=== PATIENT | female | born 1955 | race Caucasian/White ===

== ENCOUNTER → 2019-02-19 | Outpatient (CLI) | payer OTHER ==
[~2019-02-19] MED LIST: ALBU90OI INH; ASPI81CH PO; ATOR10 PO; AZIT250 PO; DIAZ10 PO; DIAZ5; DIAZ5 PO; LEVSOD50 PO; LEVSOD75 PO; LOSARTAN POTAS100 MG PO; MEDICAL MARIJUANA; NITR.4SL SL; PERI4 PO; Prednisone20 MG PO; QUIN325; SULTRIDS PO
== END | disposition home or self-care (01) ==
LOC: LAB SHORT 08:08 → PLD 08:08
DX: D23.61 Other benign neoplasm of skin of right upper limb, including shoulder (principal)
CPT/HCPCS: 88305

== ENCOUNTER → 2020-06-20 | Outpatient (CLI) | payer MEDICARE, OTHER ==
[~2020-06-20] MED LIST changes: +CLOP75 PO; +EZET10 PO
== END | disposition home or self-care (01) ==
LOC: LAB 19:08 → LAB SHORT 19:08
DX: R30.9 Painful micturition, unspecified (principal)
CPT/HCPCS: 87086; 87106

== ENCOUNTER → 2020-07-01 | Outpatient (CLI) | payer MEDICARE, OTHER ==
[2020-07-01 20:00] LABS: BASOPHILS ABSOLUTE AUTO 0.06 K/mm3 (0.00-0.23); BASOPHILS PERCENT AUTO 1 % (0-2); EOSINOPHILS ABSOLUTE AUTO 0.13 K/mm3 (0.00-0.68); EOSINOPHILS PERCENT AUTO 1 % (0-6); Hematocrit 42.8 % (33.0-51.0); Hemoglobin 14.2 g/dL (11.5-16.0); IMMATURE GRAN ABSOLUTE AUTO 0.03 K/mm3 (0.00-0.10); IMMATURE GRAN PERCENT AUTO 0 % (0-1); LYMPHOCYTES ABSOLUTE AUTO 1.58 K/mm3 (0.84-5.20); LYMPHOCYTES PERCENT AUTO 17 % (21-46); MONOCYTES ABSOLUTE AUTO 0.63 K/mm3 (0.16-1.47); MONOCYTES PERCENT AUTO 7 % (4-13); Mean Corpuscular HGB 29.6 pg (26.0-34.0); Mean Corpuscular HGB Conc 33.2 g/dL (31.5-36.5); Mean Corpuscular Volume 89 fL (80-100); Mean Platelet Volume 9.8 fL (9.1-12.4); NEUTROPHILS ABSOLUTE AUTO 7.05 K/mm3 (1.96-9.15); NEUTROPHILS PERCENT AUTO 74 % (41-73); Platelet Count 278 K/mm3 (150-400); RDW Coefficient Variation 12.8 % (11.7-14.2); Red Blood Cell Count 4.79 M/mm3 (3.80-5.20); White Blood Cell Count 9.48 K/mm3 (4.00-11.30)
[2020-07-01 21:42] LABS: Calcium, Blood 9.1 mg/dL (8.5-10.1); Creatinine, Blood 1.17 mg/dL (0.40-1.00); Potassium, Blood 4.8 mmol/L (3.5-5.5)
== END | disposition home or self-care (01) ==
LOC: LAB SHORT 17:49 → LAB 17:49
PROVIDERS: Nurse Practitioner Family
DX: I10 Essential (primary) hypertension (principal); N39.0 Urinary tract infection, site not specified; R30.9 Painful micturition, unspecified
CPT/HCPCS: 80048; 85025; 87070; 87086; 87205

== ENCOUNTER 2021-02-14 10:54 | Emergency (ER) | payer MEDICARE, OTHER ==
[~2021-02-14] VITALS: Ht 162.6 cm; Wt 65.8 kg
[2021-02-14 11:52] LABS: BASOPHILS ABSOLUTE AUTO 0.07 K/mm3 (0.00-0.23); BASOPHILS PERCENT AUTO 1 % (0-2); EOSINOPHILS ABSOLUTE AUTO 0.27 K/mm3 (0.00-0.68); EOSINOPHILS PERCENT AUTO 3 % (0-6); Hematocrit 38.4 % (33.0-51.0); Hemoglobin 12.3 g/dL (11.5-16.0); IMMATURE GRAN ABSOLUTE AUTO 0.02 K/mm3 (0.00-0.10); IMMATURE GRAN PERCENT AUTO 0 % (0-1); LYMPHOCYTES ABSOLUTE AUTO 1.97 K/mm3 (0.84-5.20); LYMPHOCYTES PERCENT AUTO 23 % (21-46); MONOCYTES ABSOLUTE AUTO 0.62 K/mm3 (0.16-1.47); MONOCYTES PERCENT AUTO 7 % (4-13); Mean Corpuscular HGB 30.1 pg (26.0-34.0); Mean Corpuscular Volume 94 fL (80-100); Mean Platelet Volume 9.8 fL (9.1-12.4); NEUTROPHILS ABSOLUTE AUTO 5.73 K/mm3 (1.96-9.15); NEUTROPHILS PERCENT AUTO 66 % (41-73); Platelet Count 238 K/mm3 (150-400); RDW Coefficient Variation 13.1 % (11.7-14.2); RDW Standard Deviation 44.5 fL (35.1-46.3); Red Blood Cell Count 4.08 M/mm3 (3.80-5.20); White Blood Cell Count 8.68 K/mm3 (4.00-11.30)
[2021-02-14 11:54] LABS: Source, Urine Catheter
[2021-02-14 12:05] LABS: Bilirubin, Urine Neg (Neg); Blood, Urine Neg (Neg); Glucose Qualitative, Urine Neg (Neg); Ketones, Urine Neg (Neg); Leukocyte Esterase, Urine Neg (Neg); Nitrite, Urine Neg (Neg); Protein, Urine Neg (Neg); Specific Gravity, Urine 1.015 (1.003-1.022); Urobilinogen, Urine NORM (Normal)
[2021-02-14 12:10] LABS: Albumin, Blood 3.8 g/dL (3.4-5.0); Albumin/Globulin Ratio 1.1 (0.8-1.8); Bilirubin, Total 0.4 mg/dL (0.1-1.0); Bun/Creatinine Ratio 18.7 (12.0-20.0); Creatinine, Blood 2.83 mg/dL (0.40-1.00); Globulin, Blood 3.6 g/dL (2.2-4.0); Total Protein, Blood 7.4 g/dL (6.4-8.2)
[2021-02-14 12:11] LABS: Appearance, Urine Clear (Clear); Color, Urine Yellow (P-Yellow)
== END 2021-02-14 13:05 | disposition home or self-care (01) ==
LOC: ER 10:54
PROVIDERS: Emergency Medicine
DX: N28.9 Disorder of kidney and ureter, unspecified (principal); F17.200 Nicotine dependence, unspecified, uncomplicated; Z79.899 Other long term (current) drug therapy
CPT/HCPCS: 36415; 76770; 80053; 81003; 85025; 99284-25; J7120; P9612

== ENCOUNTER → 2021-12-02 | Outpatient (CLI) | payer MEDICARE, OTHER ==
[2021-12-02 17:23] LABS: Source, Urine Clean Catch
[2021-12-02 17:49] LABS: Bilirubin, Urine Neg (Neg); Blood, Urine Neg (Neg); Glucose Qualitative, Urine Neg (Neg); Ketones, Urine Neg (Neg); Leukocyte Esterase, Urine 1+ (Neg); Nitrite, Urine Neg (Neg); Protein, Urine 1+ (Neg); Urobilinogen, Urine NORM (Normal)
[2021-12-02 18:11] LABS: Appearance, Urine Hazy (Clear); Color, Urine Pale Yellow (P-Yellow)
[2021-12-02 18:12] LABS: Red Blood Cells, Urine 0-2 /hpf (0-2)
[2021-12-02 18:13] LABS: Bacteria Rare /hpf; Mucus Light (0-Heavy); Squamous Epithelial Cells Rare /hpf (Few)
== END | disposition home or self-care (01) ==
LOC: LAB 16:45 → LAB SHORT 16:45
PROVIDERS: Internal Medicine Nephrology
DX: R39.9 Unspecified symptoms and signs involving the genitourinary system (principal)
CPT/HCPCS: 81001; 87086

== ENCOUNTER 2022-10-18 16:46 | Inpatient (IN) | payer MEDICARE, OTHER ==
[~2022-10-18] VITALS: Ht 152.4 cm; Wt 54.5 kg
[2022-10-18 17:27] LABS: BASOPHILS ABSOLUTE AUTO 0.07 K/mm3 (0.00-0.23); BASOPHILS PERCENT AUTO 1 % (0-2); EOSINOPHILS ABSOLUTE AUTO 0.23 K/mm3 (0.00-0.68); EOSINOPHILS PERCENT AUTO 2 % (0-6); Hematocrit 20.3 % (33.0-51.0); Hemoglobin 6.9 g/dL (11.5-16.0); IMMATURE GRAN ABSOLUTE AUTO 0.05 K/mm3 (0.00-0.10); IMMATURE GRAN PERCENT AUTO 1 % (0-1); LYMPHOCYTES ABSOLUTE AUTO 2.19 K/mm3 (0.84-5.20); LYMPHOCYTES PERCENT AUTO 21 % (21-46); MONOCYTES ABSOLUTE AUTO 0.57 K/mm3 (0.16-1.47); MONOCYTES PERCENT AUTO 6 % (4-13); Mean Corpuscular HGB 29.1 pg (26.0-34.0); Mean Corpuscular Volume 86 fL (80-100); Mean Platelet Volume 9.6 fL (9.1-12.4); NEUTROPHILS ABSOLUTE AUTO 7.15 K/mm3 (1.96-9.15); NEUTROPHILS PERCENT AUTO 70 % (41-73); Platelet Count 396 K/mm3 (150-400); RDW Coefficient Variation 13.8 % (11.7-14.2); RDW Standard Deviation 43.1 fL (35.1-46.3); Red Blood Cell Count 2.37 M/mm3 (3.80-5.20); White Blood Cell Count 10.26 K/mm3 (4.00-11.30)
[2022-10-18 18:09] LABS: Albumin, Blood 3.7 g/dL (3.4-5.0); Albumin/Globulin Ratio 1.2 (0.8-1.8); Bilirubin, Total 0.3 mg/dL (0.1-1.0); Calcium, Blood 9.2 mg/dL (8.5-10.1); Creatinine, Blood 2.82 mg/dL (0.40-1.00); Globulin, Blood 3.1 g/dL (2.2-4.0); Potassium, Blood 4.4 mmol/L (3.5-5.5); Total Protein, Blood 6.8 g/dL (6.4-8.2)
[2022-10-18 19:15] LABS: Source, Urine Clean Catch
[2022-10-18 19:22] LABS: Appearance, Urine Clear (Clear); Bilirubin, Urine Neg (Neg); Blood, Urine Neg (Neg); Glucose Qualitative, Urine 2+ (Neg); Ketones, Urine Neg (Neg); Leukocyte Esterase, Urine Neg (Neg); Nitrite, Urine Neg (Neg); Protein, Urine 3+ (Neg); Urobilinogen, Urine NORM (Normal)
[2022-10-18 19:39] LABS: Color, Urine Pale Yellow (P-Yellow)
[2022-10-18 19:40] LABS: Bacteria Few /hpf; Red Blood Cells, Urine 0-2 /hpf (0-2); Squamous Epithelial Cells Few /hpf (Few)
[2022-10-18] MEDS ORDERED: EUTHYROX50 MCG PO (20:15)
[2022-10-18] MEDS ORDERED: Amlodipine Bes2.5 MG PO (20:16)
[2022-10-18] MEDS ORDERED: CALC.25 PO (20:17)
[2022-10-18] MEDS ORDERED: TRAZ50 PO (20:18)
[2022-10-18 21:19] LABS: Influenza A, PCR NEGATIVE (NEGATIVE); Influenza B, PCR NEGATIVE (NEGATIVE); Resp Syncytial Virus, PCR NEGATIVE (NEGATIVE); SARS-Cov-2 (COVID-19) PCR, MMC NEGATIVE (NEGATIVE)
--- NOTE | 2022-10-18 23:41 | NUR ---
ADMISSION NOTE/SHIFT SUMMARY PT ARRIVED TO MEDICAL FLOOR FROM ED AT APPROX 2120. PT IS AxOx3-4 WITH INTERM FORGETFULNESS. PT'S DEREJE/JOSE M VALENTIN AT BEDSIDE TO ASSIST WITH ADMISSION. 1 UNIT RBC TRANSFUSION STARTED SHORTLY AFTER ARRIVAL TO FLOOR. PT'S LS ARE WHEEZY/RHONCHI T/O. PT WAS PLACED ON 3L O2 VIA NC. SATS >95% AFTER O2 THERAPY STARTED. GI CONSULTED THIS EVENING. CURRENT PLAN IS TO WAIT FOR LUNGS TO CLEAR BEFORE ABLE TO DO UPPER ENDOSCOPY. WITH THIS INFORMATION, PT'S DIET ADVANCED TO REGULAR/ADA PER DR WILLETT. PT IS MOANING ON AND OFF IN DISCOMFORT. DENIES ABILILTY TO TAKE ANY PAIN MEDICATION D/T GENERAL ALLERGY TO PAIN MEDS. PT GIVEN HEAT PAD WITH REPORTED RELIEF. TELE PLACED. PT IS CURRENTLY RESTING IN BED. CALL LIGHT IN REACH.
[2022-10-19 04:57] LABS: Hematocrit 26.3 % (33.0-51.0); Mean Corpuscular HGB 29.1 pg (26.0-34.0); Mean Corpuscular HGB Conc 34.2 g/dL (31.5-36.5); Mean Corpuscular Volume 85 fL (80-100); Mean Platelet Volume 9.5 fL (9.1-12.4); Platelet Count 395 K/mm3 (150-400); RDW Coefficient Variation 13.6 % (11.7-14.2); RDW Standard Deviation 42.2 fL (35.1-46.3); Red Blood Cell Count 3.09 M/mm3 (3.80-5.20); White Blood Cell Count 16.96 K/mm3 (4.00-11.30)
--- NOTE | 2022-10-19 05:25 | NUR ---
SHIFT SUMMARY PATIENT ADMITTED FROM THE ER AT 2230. PATIENT DENIES PAIN AND NAUSEA. REPORTS SHORTNESS OF BREATH. PATIENT ON 3L VIA N/C, SATURATING ABOVE 94%. PATIENT RECEIVED BREATHING TREATMENT BY RT. PATIENT MEDICATED X1 FOR ANXIETY. PATIENT HAS LEFT ARM FISTULA. PATIENT RECEIVED 1UNIT OF PRBC FOR A HGB OF 6.9. BLOOD COMPLETED AT 0215. MORNING LABS SHOWED HGB OF 9.0. PATIENT IS BEDREST. DR. WILLETT CONSULTED, SEE NOTE. AFTER BLOOD ADMINISTERED, PATIENT LUNG SOUNDS VERY MOIST AND CRACKLES. DR. GARCIA NOTIFIED, NEW ORDERS FOR FLUIDS DC'D. PATIENT UNABLE TO VOID, BLADDER SCAN SHOWED 650MLS. DR. GARCIA NOTIFIED, STRAIGHT CATH ORDERS, COMPLETED WITH OUTPUT OF 700MLS. PER DR. GARCIA, OKAY TO PLACE DIETRICH IF PATIENT RETAINS AGAIN. PATIENT SBP 180, DR. GARCIA NOTIFIED, NEW ORDERS TO GIVE 0900 DOSE OF AMLODIPINE NOW. PATIENT SLEPT ON AND OFF AFTER BLOOD COMPLETED. PATIENT PLEASANT AND COOPERATIVE WITH CARE.
[2022-10-19 05:26] LABS: Bun/Creatinine Ratio 14.8 (12.0-20.0); Calcium, Blood 8.2 mg/dL (8.5-10.1); Creatinine, Blood 2.57 mg/dL (0.40-1.00); Potassium, Blood 4.6 mmol/L (3.5-5.5)
[2022-10-19 16:30] LABS: Hematocrit 23.2 % (33.0-51.0)
--- NOTE | 2022-10-19 17:36 | NUR ---
SHIFT SUMMARY A&Ox4, COOPERATIVE WITH CARE, ANXIOUS AT TIMES. PT WAS LETHARGIC DURING THE FIRST HALF OF THE SHIFT DUE TO "BEING EXHAUSTED" AND TREATED WITH VALIUM FOR ANXIOUS EPISODE THIS AM. HER RR WAS 32 AND DECREASED WITH MEDICATION AND REST. LUNG SOUNDS IMPROVED T/O SHIFT. CRACKLES IN UPPER LOBES AND DIMINISHED IN LOWER. PRODUCTIVE COUGH NOTED. CURRENTLY ON 3L VIA NC. SBP RUNS HIGH IN THE 160'S TO 180'S. TELE HAS BEEN UPPER 80'S AND LOW 90'S WITH NO EVENTS T/0 SHIFT. PT ABLE TO PEE AND HAS HAD ADEQUATE OUTPUT. POWERGLIDE PLACED IN UPPER RIGHT ARM DUE TO IV LEAKING AND CAUSING PAIN. PT CURRENTLY ON 75MLS/HR OF NS. PLANS TO HAVE EGD DONE TOMORROW IF LUNG SOUNDS CLEAR UP. PT REPORTS SOB WITH EXERTION, DENIES CP OR DIZZINESS. COMPLAINED OF HEADACHE AND TREATED WITH TYLENOL. PT WISHES TO GET VALIUM WITH HER PM MEDS TO HELP HER SLEEP SHE HAS "BARELY SLEPT FOR 2 WEEKS." NO ACUTE EVENTS DURING THIS SHIFT. CURRENTLY EATING DINNER AND WATCHING TV WITH CALL LIGHT IN REACH.
--- NOTE | 2022-10-20 07:34 | NUR ---
INPATIENT NURSING AIDE SUMMARY PT A/OX4 W/SOME FORGETFULNESS/SLOW RECALL. NO ACUTE EVENTS. ABLE TO MAKE NEEDS KNOWN. CALLS APPROPRIATELY. SBA T/BSC. [place]. BED LOCKED/LOW. CALL LIGHT ACCESSIBLE. DR WILLETT IN TO SEE PT; PT REPORTS INFORMED HER--EGD WILL BE Tuesday10/21/22 AFTER 3PM.
[2022-10-20 07:52] LABS: BASOPHILS ABSOLUTE AUTO 0.01 K/mm3 (0.00-0.23); BASOPHILS PERCENT AUTO 0 % (0-2); EOSINOPHILS PERCENT AUTO 0 % (0-6); Hematocrit 21.7 % (33.0-51.0); Hemoglobin 7.2 g/dL (11.5-16.0); IMMATURE GRAN ABSOLUTE AUTO 0.02 K/mm3 (0.00-0.10); IMMATURE GRAN PERCENT AUTO 0 % (0-1); LYMPHOCYTES ABSOLUTE AUTO 0.37 K/mm3 (0.84-5.20); LYMPHOCYTES PERCENT AUTO 4 % (21-46); MONOCYTES ABSOLUTE AUTO 0.06 K/mm3 (0.16-1.47); MONOCYTES PERCENT AUTO 1 % (4-13); Mean Corpuscular HGB 28.1 pg (26.0-34.0); Mean Corpuscular HGB Conc 33.2 g/dL (31.5-36.5); Mean Corpuscular Volume 85 fL (80-100); Mean Platelet Volume 9.9 fL (9.1-12.4); NEUTROPHILS ABSOLUTE AUTO 8.19 K/mm3 (1.96-9.15); NEUTROPHILS PERCENT AUTO 95 % (41-73); Platelet Count 312 K/mm3 (150-400); RDW Coefficient Variation 14.2 % (11.7-14.2); RDW Standard Deviation 44.4 fL (35.1-46.3); Red Blood Cell Count 2.56 M/mm3 (3.80-5.20); White Blood Cell Count 8.65 K/mm3 (4.00-11.30)
[2022-10-20 08:17] LABS: Albumin, Blood 2.7 g/dL (3.4-5.0); Albumin/Globulin Ratio 0.9 (0.8-1.8); Bilirubin, Total 0.5 mg/dL (0.1-1.0); Bun/Creatinine Ratio 15.3 (12.0-20.0); Creatinine, Blood 2.94 mg/dL (0.40-1.00); Potassium, Blood 5.4 mmol/L (3.5-5.5); Total Protein, Blood 5.7 g/dL (6.4-8.2)
--- NOTE | 2022-10-20 12:24 | NUR ---
Echocardiogram completed.
--- NOTE | 2022-10-20 13:30 | NUR ---
PT REPORTED NO FEELING WELL THIS MORNING WHILE. DR. THOMPSON WAS MAKING ROUNDS. PT REPORTED THAT SHE WAS HAVING ONE OF HER "EPISODES" REPORTING JAW PAIN, CHEST PAIN, NAUSEOUS. PROVIDED NAUSEA MEDICATION. HR, BP, AND RR WERE ELEVATED. EKG PREFORMED. BLOOD ADMINISTERED. C/P PERSISTED, ASPRIN ADMINISTERED, CARDIOLOGY WAS CONSULTED. ECHO WAS PREFORMED AT BEDSIDE. DR. MALDONADO SAW PT, METROPROLOL WAS ADMINISTERED. PT WAS TRANSFERED TO PCU.
[2022-10-20 14:40] LABS: Hematocrit 30.2 % (33.0-51.0); Hemoglobin 10.1 g/dL (11.5-16.0)
--- NOTE | 2022-10-20 16:07 | NUR ---
PT ARRIVED TO ROOM [id number] FROM MEDICAL FLOOR. PT IS A&OX4 AND IN RESPIRATORY DISTRESS, RESP RATE 22, SP02 94% ON 6L, PT REPORTS SOB, CHEST PAIN, SHOULDER PAIN, JAW PAIN. BREATH SOUNDS COARSE, CRACKLES AND WHEEZES NOTED. PT ONLY ABLE TO SPEAK IN SINGLE WORD ANSWERS. RT PAGED AND DR ANDREW NOTIFIED OF PT'S CONDITION. ORDERS RECEIVED, CXR AND LABS DONE. DR ANDREW AT BEDSIDE TO EVALUATE PT AND DISCUSS PLAN OF CARE. MEDICATIONS GIVEN PER MD ORDERS. NEWS ANCHOR DR MALDONADO IN ROOM TO SEE PT WELL. SEE EMAR FOR RECORD OF MEDICATIONS GIVEN. PT HAS RESPONDED WELL, IS NO LONGER IN RESPIRATORY DISTRESS AND PAIN IS CONTROLLED. PT'S GRAND-DAUGHTER/CAREGIVER IS AT BEDSIDE, PT DESIGNATES HER HER DECISION MAKER IF SHE IS NOT ABLE TO SPEAK FOR HERSELF. PT IS ON TELEMETRY WITH CLOSE MONITORING OF VS. PT IS ABLE TO USE CALL LIGHT FOR NEEDS, CALL LIGHT IN REACH. WILL CONTINUE TO MONITOR.
[2022-10-20 20:25] LABS: Hematocrit 28.3 % (33.0-51.0); Hemoglobin 9.7 g/dL (11.5-16.0)
--- NOTE | 2022-10-21 05:21 | NUR ---
SHIFT SUMMARY PT IS A&OX4, Q6 CBG, HAS BEEN EMOTIONAL/ANXIOUS THIS SHIFT, AND HAS SLEPT MOST OF THE NIGHT. THE PT HAD A PURWICK SET UP AND IT WAS DICONTINUED DUE TO THE PT STATING CHILDHOOD TRAUMA IN REGUARDS TO USING THE BATHROOM IN BED. PT NEEDS TO BE GETTING UP TO THE BSC DUE TO TRAUMA. SHE IS A 1-2P ASSIST W/ GAITBELT TO THE BSC. SHE WAS TITRAITED DOWN FROM 6L NC TO 3L NC. SHE DENIES SOB BUT SOUNDS VERY MOIST T/O HER LUNGS. PT MADE NPO AT 0000 FOR A POSSIBLE SCOPE TODAY. BED IS IN LOW, SIDE RAILS ARE UP PER PT REQUEST, AND CALL LIGHT IS IN REACH. WILL CONTINUE TO MONITOR UNTIL SHIFT REPORT IS GIVEN TO THE ONCOMING SHIFT RN. SEE NOTES FOR ANY UPDATES.
[2022-10-21 06:07] LABS: Hematocrit 25.3 % (33.0-51.0); Hemoglobin 8.7 g/dL (11.5-16.0)
--- NOTE | 2022-10-21 13:16 | NUR ---
Pt resting in bed eating her lunch upon arrival. Pt's granddaughter Nicole at bedside. Offered supportive listening and reviewed plan of care. Pt reports having significant anxiety. She reports having PTSD and has been experiencing anxiety for quite some time. Instructed this PC RN will follow to help navigate hospital stay and plan of care. Pt appears to anxious for any complex conversations at this time. Granddaughter Nicole meets this RN out in the romo. Offered therapeutic listening as Nicole expresses concerns regarding Pt's care need requirements. She expresses concerns that Pt may not be safe to live by her self any longer. Instructed concerns will be relayed to RN Caremanager. Engaged in gentle discussion regarding advanced care planning with Jaun. Educated on the importance of planning for the future as disease process takes it coarse. Continued supportive visit with Nicole. Spoke with Pt's Primary RN Kaitlin and discussed case. Palliative Care will remain available.
[2022-10-21 17:06] LABS: Potassium, Blood 5.1 mmol/L (3.5-5.5)
[2022-10-21 17:07] LABS: Albumin, Blood 2.8 g/dL (3.4-5.0); Bilirubin, Total 0.5 mg/dL (0.1-1.0); Bun/Creatinine Ratio 18.9 (12.0-20.0); Calcium, Blood 8.4 mg/dL (8.5-10.1); Creatinine, Blood 3.44 mg/dL (0.40-1.00); Globulin, Blood 2.7 g/dL (2.2-4.0); Total Protein, Blood 5.5 g/dL (6.4-8.2)
--- NOTE | 2022-10-21 18:13 | NUR ---
ASSUMED CARE OF PT AT 0700. PT HAD STABLE VITAL SIGNS THROUGHOUT THE SHIFT. CONTACTED DOCTOR REGARDING PT BLOOD SUGAR OF 359 AT APPROXIMATELY 1700. INSULIN ORDERS WERE CHANGED TO ACCOMMODATE THE BLOOD SUGAR. PT REPORTED CONSTIPATION AND SUPPOSITORY WAS ADMINISTERED.
--- NOTE | 2022-10-22 01:19 | NUR ---
CALL DR. ESCOBAR ABOUT PT'S ABDOMINAL PAIN PT STATES THAT SHE HAS BEEN CONSTIPATED FOR THREE WEEKS AND HAS NOT HAD A BOWEL MOVEMENT. SHE RECIEVED A SUPPOSITORY DURING DAY SHIFT AND ANOTHER ORDER WAS OBTAINED THIS SHIFT. THE PT IS GETTING UP TO THE BSC TO TRY AND HAVE A BOWEL MOVEMENT BUT HAS NOT HAD ANY LUCK. DR. MEZA MADE AWARE OF THE PAIN AND SAID SHE WILL PUT IN ANY ADDITIONAL ORDERS AFTER REVIEWING THE PT'S CHART IF SHE DEEMS IT NEEDED. SEE NOTES FOR ANY UPDATES.
[2022-10-22 05:28] LABS: BASOPHILS ABSOLUTE AUTO 0.02 K/mm3 (0.00-0.23); BASOPHILS PERCENT AUTO 0 % (0-2); EOSINOPHILS PERCENT AUTO 0 % (0-6); Hematocrit 28.8 % (33.0-51.0); Hemoglobin 9.8 g/dL (11.5-16.0); IMMATURE GRAN ABSOLUTE AUTO 0.13 K/mm3 (0.00-0.10); IMMATURE GRAN PERCENT AUTO 1 % (0-1); LYMPHOCYTES ABSOLUTE AUTO 1.34 K/mm3 (0.84-5.20); LYMPHOCYTES PERCENT AUTO 6 % (21-46); MONOCYTES ABSOLUTE AUTO 1.13 K/mm3 (0.16-1.47); MONOCYTES PERCENT AUTO 5 % (4-13); Mean Corpuscular HGB 28.7 pg (26.0-34.0); Mean Corpuscular Volume 84 fL (80-100); Mean Platelet Volume 9.8 fL (9.1-12.4); NEUTROPHILS ABSOLUTE AUTO 19.19 K/mm3 (1.96-9.15); NEUTROPHILS PERCENT AUTO 88 % (41-73); Platelet Count 334 K/mm3 (150-400); RDW Coefficient Variation 14.6 % (11.7-14.2); RDW Standard Deviation 45.1 fL (35.1-46.3); Red Blood Cell Count 3.42 M/mm3 (3.80-5.20); White Blood Cell Count 21.81 K/mm3 (4.00-11.30)
--- NOTE | 2022-10-22 05:32 | NUR ---
SHIFT SUMMARY PT IS A&OX4, AND HAS BEEN ANXIOUS THIS SHIFT. SHE WAS MEDICATED ONCE WITH HER VALIUM. T/O THE NIGHT THE PT WAS C/O ABDOMINAL PAIN RELATED TO CONSTIPATION. SEE PREVIOUS NOTE FOR MORE INFORMATION AND THE CONVERSATION WITH DR. MEZA. DR. MEZA HAS NOT ADDED ANY ADDITIONAL ORDERS AT THIS TIME. THE PT HAS BEEN UP TO THE BSC MANY TIMES THIS SHIFT TRYING TO USE THE BATHROOM AND HAS ONLY HAS ONE SM, FIRM, DARK BROWN/BLACK STOOL. SHE IS CURRENTLY WANTING TO SIT ON THE COMMODE TO TRY AGAIN. WHEN SHE WAS GETTING ANXIOUS SHE C/O SOME CHEST PAIN BUT IT WENT AWAY AFTER BEING MEDICATED. ON TELE SHE HAS BEEN SR 70'S AND S02 >90% ON 2L NC. SEE NOTES FOR ANY UPDATES
[2022-10-22 05:38] LABS: Albumin, Blood 3.3 g/dL (3.4-5.0); Albumin/Globulin Ratio 1.1 (0.8-1.8); Bilirubin, Total 0.5 mg/dL (0.1-1.0); Bun/Creatinine Ratio 21.9 (12.0-20.0); Calcium, Blood 9.1 mg/dL (8.5-10.1); Creatinine, Blood 4.06 mg/dL (0.40-1.00); Globulin, Blood 3.1 g/dL (2.2-4.0); Potassium, Blood 4.9 mmol/L (3.5-5.5); Total Protein, Blood 6.4 g/dL (6.4-8.2)
[2022-10-22 11:40] LABS: IMMATURE RETIC FRACTION 21.4 % (2.3-16.0); RETIC HGB EQUIVALENT 31.4 pg (28.20-36.60); RETICULOCYTE ABSOLUTE 0.068 M/mm3 (0.0200-0.1100); RETICULOCYTE COUNT PERCENT 2.18 % (0.50-2.50)
[2022-10-22 12:08] LABS: Bun/Creatinine Ratio 24.1 (12.0-20.0); Calcium, Blood 8.5 mg/dL (8.5-10.1); Creatinine, Blood 3.78 mg/dL (0.40-1.00); Potassium, Blood 4.7 mmol/L (3.5-5.5)
--- NOTE | 2022-10-22 15:52 | NUR ---
SHIFT SUMMARY PATIENT ALERT AND ORIENTED AND [place]. ANXIOUS AND TEARFUL THROUGHOUT SHIFT. SBA WITH FWW TO BATHROOM. REPORTS SEVERE PAIN IN ABD, BILAT LE, AND BILAT SHOULDERS AND NECK. STATES SHE IS CONSTIPATED AND HAS NOT HAD A BOWEL MOVEMENT IN 2-3 WEEKS. ADMIN DULCOLAX SUPP WITHOUT RESULT. PATIENT IS REQUESTING LACTULOSE ENEMA, ORDERED BUT IS TO BE HELD UNTIL AFTER PLANNED EGD. PATIENT NOTED TO HAVE URINARY RETENTION. DIETRICH WAS PLACED WITH 1350 IMMEDIATE OUTPUT. PATIENT REPORTED SIGNIFICANT RELIEF OF ABD PAIN. MAINTAINING O2 SATS ABOVE 92% ON 2L HUMID O2 VIA NC, RT ADMIN ENBS. LS COARSE WITH CRACKLES IN BASES. POWERGLIDE TO RUE FLUSHES AND DRAWS WELL. 500 ML LR BOLUS GIVEN THIS AM FOR RENAL FUNCTION. AWAITING POSSIBLE EGD THIS JULIUS WITH GI. REPORT GIVEN TO CRISTAL MAHAN RN.
--- NOTE | 2022-10-22 15:59 | NUR ---
Report received from BERYL Loaiza. The patient is sitting on the side of the bed, her granddaughter Nicole is at the bedside also. Pt is anxious, expressing anxiety about being NPO all day, about not having had the Lactolose enema, and about waiting to have the EGD. Granddaughter is attempting to console and reaasure the pt. vital signs noted stable. She is on room air, and in no respiratory distress at this time. Says that she is very uncomfortable from constipation having no BM x 3 weeks now.
--- NOTE | 2022-10-22 18:33 | NUR ---
Pt was asking frequently about what time she would be have the endoscopy. Also complaining about how uncomfortable she was. Lactolose enema was given, and the pt ambulated with the walker to the bathroom. She has pain out of proportion, states that she has severe neuropathy. The medina tubing resting on her foot gave her pain. She did not pass any stool after sitting on the toilet in the bathroom for several minutes with her granddaughter/caregiver staying with her. At this time, she is having a clear liquid dinner and was told that she would not have the endoscopy this evening. At earliest, it would be tomorrow.
[2022-10-23 05:35] LABS: Hematocrit 26.7 % (33.0-51.0); Hemoglobin 8.9 g/dL (11.5-16.0)
--- NOTE | 2022-10-23 05:52 | NUR ---
END OF SHIFT SUMMARY 1300 CC URINE OUTPUT, 2LPM NC, VSS, AFEBRILE, NPO AFTER 0500, PAIN TREATED WITH TYLENOL, NO BM, VERY NEEDY, VERY ANXIOUS, VALIUM PO X 1
[2022-10-23 06:17] LABS: Bun/Creatinine Ratio 21.9 (12.0-20.0); Calcium, Blood 8.3 mg/dL (8.5-10.1); Creatinine, Blood 4.01 mg/dL (0.40-1.00); Potassium, Blood 5.1 mmol/L (3.5-5.5)
--- NOTE | 2022-10-23 07:33 | NUR ---
ASSUMPTION OF CARE: PATIENT ALERT AND ORIENTED ANXIOUS, ABLE TO MAKE NEEDS KNOWN. PLEASANT. CONSTANT PAIN MEDICATED PER MAR PER NIGHT RN, FIBROMYALGIA. DENIES CHEST PAIN PRESSURE OR SOB. RECIEVING NEB TREATMENTS. NO ACUTE SIGN OF DISTRESS. DIETRICH DRAINING TO GRAVITY. PATIENT WITH NEW LEFT ARM FISTULA. PATIENT PLAN FOR SCOPE THIS AM [address] WILLETT. Hgb TRENDING DOWN FROM YESTERDAY. SYMPTOMATIC ANEMIA. WILL CONTINUE TO MONITOR UNTIL SHIFT CHANGE.
--- NOTE | 2022-10-23 08:14 | NUR ---
PT ARRIVED TO UNIT VIA GURN FROM THE PCU. RECEIVED REPORT FROM JEEP DRIVER. PT UNABLE TO STAND AND TRANSFER. USED SLIDER SHEET TO TRANSFER TO DAY SURGERY GURN. VSS. History, Chart, Medications and Allergies reviewed before start of procedure. Lungs clear T/O to Auscultation. Patient confirms NPO status and agrees with scheduled surgery.
--- NOTE | 2022-10-23 08:59 | NUR ---
10/23/22 0859 Drew Andrade History, Chart, Medications and Allergies reviewed before start of procedure. MONITOR INTACT WITH CONTINUOUS PULSE OXIMETRY AND INTERMITTENT BP. 3-LEAD EKG REVIEWED WITH PHYSICIAN PRIOR TO START OF PROCEDURE. O2 VIA N/C INTACT THROUGHOUT SEDATION/PROCEDURE. Bite Block Placed.
--- NOTE | 2022-10-23 16:49 | NUR ---
END OF SHIFT: PATIENT HAS ONLY IMPROVED, STILL ANXIOUS AND TEARFUL AT TIMES, PATIENT HAD SCOPE WITH NO FINDINGS, DIETRICH DC,D AND BLADDER SCAN NEEDED TO ENSURE NO RETENTION. PATIENT HAS BEEN MORE EMOTIONAL THIS EVENING, WHICH IS REFLECTING HER BLOOD PRESSURE, BUT IMPROVES WITH EMOTION STATUS. NO CONCERNS AT THIS TIME. DENIES INCREASED CHEST PAIN PROVIDER AWARE. STILL NO BM WHICH PATIENT HAS PREVIOUSLY BEEN HYPERFIXATED ON PREVIOUSLY. PATIENT ON RA SPO2 >93%. PATIENT 1 P TO CHAIR WITH GB AND FWW. WILL CONTINUE TO MONITOR UNTIL SHIFT CHANGE.
--- NOTE | 2022-10-23 18:19 | NUR ---
Pt is continuing to contemplate hospice/comfort care. She does not feel full treatment is appropriate for her particular situation, and is adamant she live at home instead of foster home, or residential care facility. Pt's granddaughter has made it clear she is unable to care for her horse race timer. Pt is tearful about this. No decisions made today, will continue to see pt.
--- NOTE | 2022-10-24 05:45 | NUR ---
END OF SHIFT SUMMARY PT RESTED OVERNIGHT, VSS, ATTEMPTED TO ENCOURAGE PT TO BE MORE INDEPENDENT AND DO MORE FOR HERSELF WITHIN HER CAPACITY, DID NOT GO WELL AT ALL, EXTREMELY ANXIOUS AND TEARFUL, PARAMJIT WILLAMS WAS ABLE TO CONSOLE HER AFTER SOME TIME SPENT AT BEDSIDE, HUGGING AND THERAPEUTIC LISTENING, PRN VALIUM HAD NO OBVIOUS EFFECT
--- NOTE | 2022-10-24 07:22 | NUR ---
ASSUMPTION OF CARE: PATIENT HAD AN UNEVENTFUL NIGHT MINUS SOME EMOTION DISTRESS, IMPROVED SINCE ASSUMPTION OF CARE. STILL ALERT AND ORIENTED YAVAPAI-APACHE PLEASANT, PETICULAR IN ADL NEEDS. NEUROPATHY IS STILL NO IMPROVED AT THIS TIME WILL INFORM ROUNDING HOSPITALISTS. RA SPO2 >92% PATIENT IN NO SIGN OF ACUTE DISTRESS. CHEST PAIN IS VERY SLOWLY IMPROVING. NITRO PASTE IN PLACE. BLOOD PRESSURE NORMOTENSIVE PATIENT HAS BEEN 1P SBA TO BSC WITH GB AND FWW. PATIENT ABLE TO VOID, NO LONGER RETAINING LIKE PREVIOUS DC OF DIETRICH. WILL CONTINUE TO MONITOR UNTIL SHIFT CHANGE NO CONCERNS FROM THIS RN AT THIS TIME.
[2022-10-24 11:18] LABS: Bun/Creatinine Ratio 20.5 (12.0-20.0); Calcium, Blood 8.1 mg/dL (8.5-10.1); Creatinine, Blood 3.8 mg/dL (0.40-1.00)
[2022-10-25 03:59] LABS: Hematocrit 26.7 % (33.0-51.0); Hemoglobin 8.9 g/dL (11.5-16.0)
[2022-10-25 04:18] LABS: Bun/Creatinine Ratio 19.1 (12.0-20.0); Calcium, Blood 8.2 mg/dL (8.5-10.1); Creatinine, Blood 3.88 mg/dL (0.40-1.00); Potassium, Blood 4.9 mmol/L (3.5-5.5)
--- NOTE | 2022-10-25 05:30 | NUR ---
BLADDER SCAN >999, 14FR F/C PLACED, 1500CC OUT IMMEDIATELY, PT ASLEEP AND DID NOT FEEL ANY URGE OR FULLNESS
--- NOTE | 2022-10-25 05:41 | NUR ---
END OF SHIFT SUMMARY PT SLEPT MOST OF THE NIGHT, RECIEVED VALIUM X1 FOR INCONSOLABLE CRYING, PHENERGAN X2 DOSES AND MORPHINE 1MG FOR PAIN 06/14, VSS, 1 MEDIUM, SOFT BM, 1500CC UO AFTER F/C PLACED FOR RETENTION, PT HAS APPROX 1/2 OF THE 2ND BOTTLE OF SUPREP IN. ENCOURAGED TO FINISH, WILL REPORT OFF TO AM SHIFT
--- NOTE | 2022-10-25 15:17 | NUR ---
PT BROUGHT TO DAY SURGERY FOR PROCEDURE.
--- NOTE | 2022-10-25 15:38 | NUR ---
PT TO DAY SURGERY
--- NOTE | 2022-10-25 15:50 | NUR ---
10/25/22 1550 Ryder Toure SEE ANNESTHESIA RECORD DR AYALA
--- NOTE | 2022-10-25 15:59 | NUR ---
CASE CANCELLED DUE TO POOR CLEAN OUT.
--- NOTE | 2022-10-25 18:54 | NUR ---
Shift Summary Pt alert, oriented x3, pt anxious for majority of shift. Up to bsc this am with 1 person assist. Pt appears painful to touch, ble and back, repositioned for comfort and heating pad in place. Pt reporting nausea this afternoon, medicated per emar. Pt denies chest pain/pressure, dizziness and numb/tingling. Tele sinus, bp stable. Spo2 >90% on 2l o2 via nc. Attempted bowel prep with suprep last night and this am and golytly, unable to complete scope, new orders entered. Vss. No other acute changes noted. Report given to oncoming rn.
[2022-10-26 06:12] LABS: Hematocrit 32.3 % (33.0-51.0); Hemoglobin 10.7 g/dL (11.5-16.0)
[2022-10-26 06:33] LABS: Albumin, Blood 2.9 g/dL (3.4-5.0); Bilirubin, Total 0.6 mg/dL (0.1-1.0); Bun/Creatinine Ratio 19.3 (12.0-20.0); Calcium, Blood 8.3 mg/dL (8.5-10.1); Creatinine, Blood 3.06 mg/dL (0.40-1.00); Globulin, Blood 2.9 g/dL (2.2-4.0); Potassium, Blood 5.3 mmol/L (3.5-5.5); Total Protein, Blood 5.8 g/dL (6.4-8.2)
--- NOTE | 2022-10-26 06:47 | NUR ---
SHIFT SUMMARY ASSUMED CARE OF PT AT 1900. PT IS A/OX4. VERY NULATO. LUNG SOUNDS HAVE WHEEZES. PT HAS MOIST NONPRODUCTIVE COUGH. PT WAS TITRATED TO RA T/O THE NIGHT. PT SATURATIONS REMAINED ABOVE 95%. PT WAS A 1P ASSIST TO BSC. SMALL FLAKES OF STOOL WITH WATERY LIQUID. PT STARTED BOWEL PREP AT 0530. CATHETER DRAINING CLEAR YELLOW URINE. PT C/O NOT SLEEPING DUE TO NOT GETTING HOME MEDICATIONS. PT SLEPT ON AND OFF. PT STATED TO THIS NURSE "I WANT TO GO HOME AND ". THIS NURSE USED THERAPUTIC COMMUNICATION TO TALK TO PT WHILE SHE WAS TEARFUL. PT STIL LWANTS TO HAVE PROCEDURE.
--- NOTE | 2022-10-26 15:07 | NUR ---
ASSUMED CARE OF PT AT 0700 THIS AM. PT STARTED BOWEL PREP ON PREVIOUS SHIFT, PT ONLY ABLE TO DRINK ABOUT HALF OF THE BOWEL PREP BY NOON, PT C/O NAUSEA AND VOMITING, STATES SHE IS UNABLE TO FINISH IT. PT HAD APROX 800ML OF LIQUID, DARK BROWN STOOL. DR WILLETT NOTIFIED THAT PT'S BOWELS DO NO APPEAR ADEQUATELY CLEARED AND PREPED FOR PROCEDURE. DR WILLETT STATES PT CAN TRY TO BOWEL PREP AGAIN IN THE AM FOR THE PROCEDURE OR DECIDE TO DECLINE THE PROCEDURE AT THIS TIME. THIS RN SPOKE WITH PT AND SHE DECIDED TO DECLINE THE COLONOSCOPY. PT STATES "I AM DONE, I CAN'T DO THIS ANYMORE." AND "I JUST WANT TO GO HOME ON HOSPICE AND ." PALLIATIVE CARE RN PHYLICIA AND MEDICAL TEAM NOTIFIED OF PT'S DECISION. PT IS MEDICAL STATUS AT THIS TIME AND WILL BE MOVED TO ROOM 358 THIS AFTERNOON.
--- NOTE | 2022-10-26 16:16 | NUR ---
Case Conference Note: Pt's granddaughter Nicole is going to bring pt's will in tomorrow to be notarized by in-house Kalani sullivan. Kalani is available before noon tomorrow, so pt's granddaughter will be here between 10 and 11am tomorrow.
--- NOTE | 2022-10-26 16:20 | NUR ---
PT TRANSFERRED TO ROOM 358 WITH ALL BELONGINGNS. GRAND-DAUGHTER AMY CALLED BY THIS RN, LEFT MESSAGE INDICATING PT'S NEW ROOM NUMBER.
--- NOTE | 2022-10-26 16:52 | NUR ---
PT ARRIVED TO THE MEDICAL FLOOR FROM THE PCU VIA WHEELCHAIR. PT IS A/OX3, PLEASANT AND COOPERATIVE. PT WAS ORIENTED TO THE ROOM LAYOUT AND CALL SYSTEM. HEATING PAD APPLIED SCD'S APPLIED PER PT REQUEST, CALL LIGHT IN REACH. WILL CONTINUE TO MONITOR AND ASSESS FOR CHANGES
[2022-10-27 05:20] LABS: Albumin, Blood 2.5 g/dL (3.4-5.0); Anion Gap 8 mmol/L (6-16); Blood Urea Nitrogen 57 mg/dL (8-24); Bun/Creatinine Ratio 16.9 (12.0-20.0); CO2, Blood 23 mmol/L (21-32); Calcium, Blood 8.3 mg/dL (8.5-10.1); Chloride, Blood 106 mmol/L (98-108); Creatinine, Blood 3.37 mg/dL (0.40-1.00); Glomerular Filtration Rate 14 (60-); Glucose, Blood 115 mg/dL (70-99); Phosphorus, Blood 4.3 mg/dL (2.5-4.9); Potassium, Blood 4.3 mmol/L (3.5-5.5); Sodium, Blood 137 mmol/L (136-145)
--- NOTE | 2022-10-27 05:57 | NUR ---
MEDICAL GENETICS DIRECTOR SUMMARY PT A/OX3-4 W/SOME FOREGETFULNESS. PT LETHARGIC/SLOW T/RESPOND. PER REPORT AT BEGINNING OF SHIFT PT DECLINED ANOTHER ATEMPT AT COLONOSCOPY AND HAS STATED SHE WANTS TO GO HOME ON HOSPICE. TALKED W/PT ABOUT WISHES AND PT CONFIRMED THIS WAS HER DESIRE. PT REQ INCREASED PAIN MEDICATIONS. CALL TO SERVICE CLEANER DR--NEW ORDER TO INCREASE MORPHINE FROM FROM 0.5MG TO 2-4MG Q4 PRN. MED W/GOOD EFFECT. PT SLEPT WELL T/O THE NIGHT. PT REQUESTED BREATHING TREATMENT. WHEN RT ARRIVED PT WAS SLEEPING--PT REQ RT NOT WAKE HER UP IF SLEEPING. PT CONT T/HAVE FREQUENT EPISODES OF NAUSEA--MED P/EMAR. ABLE TO MAKE NEEDS KNONW. DIETRICH CATH IN PLACE, PATENT, DRAINING TO GRAVITY. CALL LIGHT ACCESSIBLE. BED ALARM SET. BED LOCKED/LOW. WILL CONT TO MONITOR.
--- NOTE | 2022-10-27 16:26 | NUR ---
Met with pt, granddaughter and Dr. Moreira to discuss pt's discharge. Pt has elected to go home with hospice, and is beginning comfort care now. Pt's granddaughter is going to continue being a metal sprayer machined parts caregiver for her, and [facility] is approving more hours for care at home.
--- NOTE | 2022-10-27 16:54 | NUR ---
PT IS A/OX4, PLEASANT AND COOPERATIVE. PT APPEARS TO BE BREATHING EASILY ON RA AT REST. THE PT WAS MEDICATED FOR PAIN AND NAUSEA T/O THE DAY. THE PTS GRANDDAUGHTER WAS AT THE BEDSIDE FOR MOST OF THE DAY ASSISTING WITH THE PTS NEEDS. THE PT WAS MADE COMFORT CARE TODAY PER HER WISHES. CALL LIGHT IN REACH. WILL CONTINUE TO MONITOR AND ASSESS FOR CHANGES
--- NOTE | 2022-10-28 08:00 | NUR ---
pt laying in bed watching tv, a/ox3, profoundly nenana, using headphone speaker, lungs are course t/o, resp even and unlabored at rest, has occ nonproductive cough, on r/a, hrr, 2+ edema noted to b/l le, cap refill <3sec, vs stable, afebrile, iv is power glide to jennifer, site is clear and patent, btx4, abd flat soft nontender, voids via medina cath draining clear yellow urine, skin c/w/d, frail, maew, general weakness, perrla, call light in reach. plan is for her to go home on hospice today.
[2022-10-28] MEDS ORDERED: MORP20L SL (10:49)
[2022-10-28] MEDS ORDERED: PROMETHAZINE IM (10:49)
[2022-10-28] MEDS ORDERED: TRANSDERM-SCOP1 EA13 TD (10:50)
--- NOTE | 2022-10-28 16:10 | NUR ---
pt has been medicated several times with roxinol for pain, iv was removed intact, left via gurney with transport to home on hospice with all belongings. discharge paper work sent to granddaughter who is caregiver.
== END 2022-10-28 16:09 | disposition hospice, home (50) | DRG 377 ==
LOC: ER 16:46 → MEDS 16:47 → PCU 10-19 10:49 → MEDS 10-19 10:49 → PCU 10-20 12:53 → MEDS 10-26 16:19
PROVIDERS: Family Medicine; Hospitalist; Internal Medicine Nephrology; Student in an Organized Health Care Education/Training Program; ADMIT Internal Medicine
PROC: 30233N1 Transfusion of Nonautologous Red Blood Cells into Peripheral Vein, Percutaneous Approach (ICD-10-PCS; principal; 2022-10-19)
PROC: 30233N1 Transfusion of Nonautologous Red Blood Cells into Peripheral Vein, Percutaneous Approach (ICD-10-PCS; 2022-10-20)
PROC: 0DJ08ZZ Inspection of Upper Intestinal Tract, Via Natural or Artificial Opening Endoscopic (ICD-10-PCS; 2022-10-23)
DX: K92.2 Gastrointestinal hemorrhage, unspecified (principal); I21.4 Non-ST elevation (NSTEMI) myocardial infarction; J96.21 Acute and chronic respiratory failure with hypoxia; D62 Acute posthemorrhagic anemia; N18.4 Chronic kidney disease, stage 4 (severe); N17.9 Acute kidney failure, unspecified; J44.1 Chronic obstructive pulmonary disease with (acute) exacerbation; E87.1 Hypo-osmolality and hyponatremia; I13.0 Hypertensive heart and chronic kidney disease with heart failure and stage 1 through stage 4 chronic kidney disease, or unspecified chronic kidney disease; I50.32 Chronic diastolic (congestive) heart failure; N25.81 Secondary hyperparathyroidism of renal origin; Z20.822 Contact with and (suspected) exposure to COVID-19; Z51.5 Encounter for palliative care; Z66 Do not resuscitate; K59.03 Drug induced constipation; T47.6X5A Adverse effect of antidiarrheal drugs, initial encounter; R11.2 Nausea with vomiting, unspecified; R19.7 Diarrhea, unspecified; I25.10 Atherosclerotic heart disease of native coronary artery without angina pectoris; E11.22 Type 2 diabetes mellitus with diabetic chronic kidney disease; M54.9 Dorsalgia, unspecified; G89.29 Other chronic pain; E11.51 Type 2 diabetes mellitus with diabetic peripheral angiopathy without gangrene; F17.210 Nicotine dependence, cigarettes, uncomplicated; I25.2 Old myocardial infarction; Z95.5 Presence of coronary angioplasty implant and graft; Z87.01 Personal history of pneumonia (recurrent); Z90.49 Acquired absence of other specified parts of digestive tract; Z90.710 Acquired absence of both cervix and uterus; Z90.721 Acquired absence of ovaries, unilateral; Z88.5 Allergy status to narcotic agent; Z88.8 Allergy status to other drugs, medicaments and biological substances; Z79.82 Long term (current) use of aspirin; Z79.02 Long term (current) use of antithrombotics/antiplatelets; Z79.899 Other long term (current) drug therapy
CPT/HCPCS: 0241U; 36415; 36430; 51701; 71045; 71046; 74176; 80048; 80053; 80069; 81001; 82272; 82947; 83880; 83930; 83935; 84295; 84300; 84484; 85014; 85018; 85025; 85027; 85045; 86850; 86900; 86901; 86923; 93005; 93010; 93306; 94640; 94760; 94762; 96374; 96375; 96376; 97110; 97162; 97530; 99285-25; A9270; C1751; C9113; G0378; J0360; J0456; J0780; J1815; J1940; J2270; J2405; J2550; J2704; J2765; J2930; J3010; J7030; J7050; J7120; P9016